=== PATIENT | male | born 2000 | race Caucasian/White ===

== ENCOUNTER 2021-10-03 12:26 | Emergency (ER) | payer MEDICAID ==
[~2021-10-03] VITALS: Ht 182.9 cm; Wt 114.0 kg
[2021-10-03 12:34] VITALS: BP 136/82
[2021-10-03] MEDS ORDERED: KETOROLAC 30MG/ML VIAL IM NR (15:45)
== END 2021-10-03 18:01 | disposition home or self-care (01) ==
LOC: ER 12:26
DX: S40.022A Contusion of left upper arm, initial encounter (principal); W06.XXXA Fall from bed, initial encounter; Y93.89 Activity, other specified; Y92.9 Unspecified place or not applicable
CPT/HCPCS: 73070; 73090; 73110; 99284